=== PATIENT | male | born 1985 | race Caucasian/White ===

== ENCOUNTER 2022-11-25 13:45 | Emergency (ER) | payer SELFPAY ==
--- NOTE | 2022-11-25 14:38 | NUR ---
PT LEFT WITHOUT BEEN TRIAGED.
== END 2022-11-25 14:39 | disposition left against medical advice (07) ==
LOC: ER 13:45
DX: Z53.21 Procedure and treatment not carried out due to patient leaving prior to being seen by health care provider (principal)